=== PATIENT | male | born 1940 | race Caucasian/White ===

== ENCOUNTER 2020-10-26 08:52 | Outpatient (CLI) | payer MEDICARE, OTHER ==
[2020-10-26 12:29] LABS: Hemoglobin 14.5 g/dL (13.5-17.5); Mean Corpuscular HGB CONC 34.1 g/dL (32.0-36.0); Mean Corpuscular Hemoglobin 29.6 pg (27.0-33.0); Mean Corpuscular Volume 86.7 fl (81.2-95.1); Mean Platelet Volume 10.3 fl (7.4-10.4); Platelet Count 139 10x3/uL (150-450); White Blood Cell (WBC) Count 6.2 10x3/uL (3.5-10.5)
[2020-10-26 12:44] LABS: Prothrombin Time 11.4 sec (9.5-12.1)
[2020-10-26 13:17] LABS: Anion Gap 14 mmol/L (10-20); BUN (Urea Nitrogen) 21 mg/dL (8.4-25.7); Calc. Creatinine Clearance 0 mL/min (70-130); Calcium 10.2 mg/dL (7.8-10.44); Carbon Dioxide 26 mmol/L (23-31); Chloride 104 mmol/L (98-107); Glucose 110 mg/dL (83-110); Potassium 4.6 mmol/L (3.5-5.1); Sodium 139 mmol/L (136-145)
[2020-10-27 10:32] LABS: SARS-CoV-2 PCR by NAA Not Detected (NotDetected)
== END 2020-10-26 08:53 | disposition home or self-care (01) ==
LOC: LABBT 08:52
PROVIDERS: ATTEND Internal Medicine Cardiovascular Disease
DX: Z01.812 Encounter for preprocedural laboratory examination (principal); I48.0 Paroxysmal atrial fibrillation; Z20.822 Contact with and (suspected) exposure to COVID-19
CPT/HCPCS: 80048; 85027; 85610; U0003; U0005